=== PATIENT | male | born 1965 | race Caucasian/White ===

== ENCOUNTER 2024-01-21 14:02 | Emergency (ER) | payer OTHER, SELFPAY ==
[2024-01-21 14:19] VITALS: BP 135/85
[2024-01-21 15:02] VITALS: BMI 35.2
--- NOTE | 2024-01-21 15:21 | ED.GENMED ---
History of Present Illness
General
Chief Complaint: Abdominal Pain
Source: patient
Exam Limitations: none
Time Seen by Provider: 01/21/24 15:15
History of Present Illness
History of Present Illness:
See MDM
Past History
Past History
ED Past Medical History: None
ED Past Surgical History: None
Social History
Tobacco: Non-smoker
Alcohol: None
Phy Exam
Physical Exam
Physical Exam:
See MDM
Course
Orders/Labs/Results
Orders:
Orders
01/21/24 15:11
Complete Blood Count/With Diff Urgent
Comprehensive Metabolic Panel Urgent
Lipase Urgent
01/21/24 15:21
CT Abd/pelvis W Iv Cont Urgent
Comment:
Reason For Exam: intermittent LLQ pain
01/21/24 15:40
Urinalysis Reflex To Culture Urgent
Date Specimen was Collected: 01/21/24
Time Specimen was Collected: 15:37
01/21/24 19:07
Amoxicillin 875 mg/Clav 125 mg [Augmentin 875 mg/125 mg] 1 tablet PO NOW STA
Abnormal Lab Results
01/21/24
15:11
Absolute Monos (auto) 0.9 H 10^3/uL
(0.1-0.6)
Lymphocytes % 17.2 L %
(20.5-51.1)
Monocytes % 9.6 H %
(1.7-9.3)
BUN 30 H mg/dl
(9-20)
Glucose 132 H mg/dl
(70-99)
01/21/24 15:11
01/21/24 15:11
Vital Signs
Initial and Last Documented VS:
Initial Vital Signs
Temp Pulse Resp BP Pulse Ox
99.0 F 90 18 135/85 97
01/21/24 14:19 01/21/24 14:19 01/21/24 14:19 01/21/24 14:19 01/21/24 14:19
Last Documented Vital Signs
Temp Pulse Resp BP Pulse Ox
99.0 F 90 18 135/85 97
01/21/24 14:19 01/21/24 14:19 01/21/24 14:19 01/21/24 14:19 01/21/24 14:19
MDM/Problems Addressed
Differential Diagnosis Includes:
HPI and MDM Narrative:
58-year-old male presenting for evaluation of left lower quadrant pain. Patient noted this morning. This is associated with straining stools and gas pain. He looked online and is concerned it could be diverticulitis. He also has a history of
kidney stones and is unsure if this is a kidney stone pain. It presents differently than prior kidney stones. Patient states he is otherwise well-appearing and declined any pain medicine at the moment. He states he is more curious than anything.
Denies fevers or nausea
Physical exam
General: Well appearing and non-toxic
HEENT: protecting airway
Neck: appears supple
CV: No evidence of cyanosis
Resp: No accessory muscle use
Abd: Non-distended. Mild left lower quadrant tenderness. No rebound
Extremities: No deformities
Neuro: alert
Psych: Normal affect
Skin: Intact
Problems Addressed including Acute and Chronic Conditions affecting care:
1. Left lower quadrant pain
Acuity: acute
Prognosis: stable
Details: Given his history, will obtain CT rule out kidney stone versus diverticulitis.
Updates
CT consistent with acute uncomplicated diverticulitis. Will start Augmentin
Differential Diagnosis (but not limited to): Constipation, diverticulitis, colitis kidney stone
Testing considered: CT without contrast
Drug therapy (if applicable): OTC meds, please see d/c instruction regarding Rx drugs
Amount and/or Complexity of Data Reviewed
Clinical info obtained from: Patient
External data reviewed: N/A
Labs I independently reviewed (but not limited to): Right blood cell count normal
Radiology: The CT scan was personally and independently reviewed. In addition, official CT report reviewed.
Pulse Ox: not hypoxic
EKG independently reviewed: N/A
Soda Worker: N/A
Critical Care: N/A
Risk of Complication:
Social Determinants of health: Good social support
Discussed with other providers: N/A
Escalation of Care includes Admit/Obs: After being observed in the Emergency Department, pt stable for discharge.
Occasional wrong word or 'sound a like' substitutions may have occurred due to the inherent limitations of voice recognition software. Read the chart carefully and recognize, using context, where substitutions have occurred.
*Critical Care Note
Total Time (30-74mins, 75-104mins- exclusive of procedures): Not Applicable
ED Attending Note
-
Portions of this chart may have been created with voice recognition software.� Occasional wrong word or��sound alike� substitutions may have occurred due to the inherent limitations of voice recognition software.
Discharge Plan
Departure
Patient Disposition: Home (Routine Discharge)
Date of Disposition: 01/21/24
Time of Disposition: 19:08
Patient with high blood pressure during this ER visit?: No
Discharge Problem:
Diverticulitis
Instructions: Diverticulitis (DC)
Prescriptions:
New
amoxicillin-pot clavulanate 875-125 mg tablet
1 tab PO BID Qty: 14 0RF
Referrals:
Luke Arriaza DO [Family Provider] -
Activity Restrictions/Additional Instructions:
Please return for any worsening symptoms.
You may return at any time if you have further concerns.
Please follow up with your doctor at the first available appointment, preferably this week.
Thank you for choosing [facility].
Interventions
Interventions:
*Risk Screen - Suicide Last Done: 01/21/24 15:02
*General Assessment Last Done: 01/21/24 15:02
*Neglect/Abuse Screening Last Done: 01/21/24 15:02
ED- Fall Risk Assessment Last Done: 01/21/24 15:08
*ED COVID-19 Vaccine History Last Done: 01/21/24 15:02
RY-Kkfhbm-Nbopbatvdg Assessment Last Done: 01/21/24 15:02
Discharge Date and Time
Print Language: PORTUGUESE
[2024-01-21 15:26] LABS: % Basophils 0.4 % (0-2); % Eosinophils 1.6 % (0-6); % Immature Granulocytes 0.3 % (0-0.5); % Lymphocytes 17.2 % (20.5-51.1); % Monocytes 9.6 % (1.7-9.3); % Neutrophils 70.9 % (42.2-75.2); Absolute Eosinophils 0.1 10^3/uL (0-0.7); Absolute Lymphocytes 1.5 10^3/uL (1.2-3.4); Absolute Monocytes 0.9 10^3/uL (0.1-0.6); Absolute Neutrophils 6.3 10^3/uL (1.4-6.5); Hematocrit 41.5 % (39.0-52.0); Mean Corp Hgb Conc. 33.7 g/dL (33.0-37.0); Mean Corpuscular Volume 85.9 fL (80.0-94.0); Mean Platelet Volume 9.7 fL (7.4-10.4); Nucleated Red Blood Cells % 0 % (-); Platelet Count 202 10^3/uL (130-400); Red Blood Cell Count 4.83 10^6/uL (4.70-6.10); Red Cell Dist. Width 13.1 % (11.5-14.5); White Blood Cell Count 8.9 10^3/uL (4.8-10.8)
[2024-01-21 15:39] LABS: ALT (SGPT) 26 U/L (0-50); AST (SGOT) 29 U/L (17-59); Albumin 4.8 g/dl (3.5-5.0); Alkaline Phosphatase 45 U/L (38-126); Blood Urea Nitrogen 30 mg/dl (9-20); Calcium 10.1 mg/dl (8.4-10.2); Carbon Dioxide 24 mmol/L (22-30); Chloride 105 mmol/L (98-107); Estimated Creatinine Clearance 84 ml/min; Glucose 132 mg/dl (70-99); Lipase 159 U/L (23-300); Potassium 4.1 mmol/L (3.5-5.1); Sodium 137 mmol/L (135-145); Total Protein 7.1 g/dl (6.3-8.2); eGFR > 60.00
[2024-01-21 16:00] LABS: Urine Albumin Negative (Neg - Trace); Urine Bilirubin Negative (Negative); Urine Character Clear (Clear); Urine Color Yellow; Urine Glucose Negative (Negative); Urine Ketone Negative (Negative); Urine Leukocyte Negative (Negative); Urine Nitrite Negative (Negative); Urine Occult Blood Negative (Negative); Urine Specific Gravity 1.025 (<1.030); Urine Urobilinogen Negative (Neg - 1+)
[2024-01-21] MEDS: AUGMENTIN 875 MG/125 MG 1 TABLET PO (19:29)
[2024-01-21 19:32] VITALS: BP 118/77
[2024-01-21 19:33] VITALS: BP 118/77
== END 2024-01-21 19:33 | disposition home or self-care (01) ==
LOC: EMR 14:02
PROVIDERS: Student in an Organized Health Care Education/Training Program; EMERGENCY PHYSICIAN Student in an Organized Health Care Education/Training Program; FAMILY PHYSICIAN Family Medicine
DX: K57.32 Diverticulitis of large intestine without perforation or abscess without bleeding (principal); Z87.442 Personal history of urinary calculi; Z88.5 Allergy status to narcotic agent
CPT/HCPCS: 99284; 74177; 80053; 81003; 83690; 85025; Q9967